=== PATIENT | female | born 1970 | race Two or more races ===

== ENCOUNTER 2017-07-15 02:09 | Emergency (ER) | payer OTHER ==
[2014-12-27 10:30] VITALS: Wt 54.4 kg
[~2017-07-15 02:09] MED LIST: CALC500T76 PO; CHOL100094 PO; CLIN25GE TP; CLIN50GE2; DOCU-416 PO; FLAX100030 PO; GLYC2TAB15 PO; HYDR25CA83 PO; HYDR2TAB74 PO; HYO125 SL; IBU600 PO; LACT1CAP6 PO; MOMR ENA; MULT-820 PO; MULT-865 PO; OMEP-137 PO; ONDA4TAB PO; ONDA4TAB9 PO; SODI45SP29 ENA; TRAM-420 PO
[2017-07-15] MEDS ORDERED: LEVO50TA86 PO (02:25)
--- NOTE | 2017-07-15 02:29 | ER Report ---
History and Physical Time Seen By MD: 02:29 Hx. of Stated Complaint: Pt is reporting severe abdominal pain (left lower quadrant). No nvd. No fevers. Pt is not taking narcotics after knee surgery 3 weeks ago. HPI/ROS CHIEF COMPLAINT: left lower abdominal pain HISTORY OF PRESENT ILLNESS: This is a 47 year old female. She has been having abdominal pain for a couple of days, slowly worsening, mainly in the left lower abdomen, with a feeling of distension in the lower abdomen. She has some intermittent sharp stabbing pain with constant dull pain. Nothing really makes it worse or better. Sometimes rates between a 7 and a 10. No fevers or chills noted. No nausea, vomiting or changes in diarrhea. REVIEW OF SYSTEMS: Constitutional: [No fever or chills.] Eyes: [No discharge.] [No vision changes.] ENT: [No sore throat.] [No congestion.] [No hearing changes.] Cardiovascular: [No chest pain.] [No palpitations.] Respiratory: [No cough.] [No shortness of breath.] Gastrointestinal: [No abdominal pain.] [No nausea or vomiting.] [No change in bowel movements.] [No blood in the stool or melena.] Genitourinary: [No dysuria.] [No hematuria.] [No frequency] Musculoskeletal: [No back pain.] [No extremity pain.] Skin: [No rashes.] [No bruising.] Neurological: [No numbness.] [No weakness.] [No headache.] Allergies: Coded Allergies: NSAIDS (Non-Steroidal Anti-Inflamma (Verified Allergy, Severe, AIRWAY OBSTRUCTION, 07/05/15) Sulfa (Sulfonamide Antibiotics) (Verified Allergy, Severe, ANAPHALAXSIS, ) buckwheat (Verified Allergy, Severe, ANAPHALAXISIS, 07/05/15) clams (Verified Allergy, Severe, DIFFUCULTY BREATHING, 07/05/15) corn (Verified Allergy, Severe, DIFFUCULTY BREATHING, 07/05/15) latex (Verified Allergy, Severe, RASH, ANPHALAXIS, 07/05/15) nut - unspecified (Verified Allergy, Severe, DIFFUCULTY BREATHING, 07/05/15 ) peach (Verified Allergy, Severe, DIFFICULTY BREATHING, 07/05/15) sesame seed (Verified Allergy, Severe, DIFFUCULTY BREATHING, 07/05/15) shellfish derived (Verified Allergy, Severe, DIFFUCULTY BREATHING, 07/05/15 ) soy (Verified Allergy, Severe, DIFFUCULTY BREATHING, 07/05/15) bacitracin (Verified Allergy, Intermediate, RASH, 07/05/15) gramicidin D (Verified Allergy, Intermediate, RASH, 07/05/15) neomycin (Verified Allergy, Intermediate, RASH, 07/05/15) polymyxin B (Verified Allergy, Intermediate, RASH, 07/05/15) spironolactone (Verified Allergy, Intermediate, RASH, 07/05/15) nausea/vomitting/diarrhea gold sodium thiomalate (Verified Allergy, Mild, RASH, 07/05/15) hydrocodone (Verified Adverse Reaction, Severe, VOMITING, 07/05/15) morphine (Verified Adverse Reaction, Intermediate, HARD TIME WAKING UP, ) Uncoded Allergies: CANTALOUPE (Allergy, Severe, ANAPHALAXISIS, 01/16/11) birch tree related fruits (Allergy, Severe, ANAPHYLAXIS, 12/24/14) cherries (Allergy, Severe, ANAPHYLAXIS, 12/24/14) Hayfever (Allergy, Intermediate, Itchy eyes, runny nose, 04/26/11) Home Meds Active Scripts Tramadol Hcl (TRAMADOL HCL) 50 Mg Tablet, 50 MG PO Q6H Y for PAIN, #12 TAB 0 Refills Prov:JORDI MCDANIEL MD 07/15/17 Ondansetron (ZOFRAN ODT) 4 Mg Tab.rapdis, 4 MG PO Q6H Y for NAUSEA/VOMITING, # 20 TAB.MYRA 0 Refills Prov:JORDI MCDANIEL MD 07/15/17 Metronidazole (METRONIDAZOLE) 500 Mg Tablet, 500 MG PO TID, #30 TAB 0 Refills Prov:JORDI MCDANIEL MD 07/15/17 Levofloxacin 500 Mg Tab (LEVOFLOXACIN 500 MG TAB) 500 Mg Tablet, 500 MG PO QDAY , #10 TAB 0 Refills Prov:JORDI MCDANIEL MD 07/15/17 Reported Medications Levothyroxine Sodium (LEVOTHYROXINE SODIUM) 50 Mcg Tablet, 25 MCG PO QDAY, TAB 07/15/17 Clindamycin Phos/Benzoyl Perox (CLINDAMYCIN-BENZOYL PEROX GEL) 25 Gm Gel..gram. , 1 INDIGO TP PRN 12/07/14 Lactobacillus Combination No.4 (PROBIOTIC) 1 Each Capsule, 1 EACH PO DAILY, CAPSULE 10/09/14 Sodium Chloride (SALINE MIST) 45 Ml Keiser, 1 SPRAY NICKOLAS PRN, SPRAY 10/09/14 Mometasone Furoate (NASONEX) 17 Gm Keiser, 1 SPRAY NICKOLAS PRN, SPRAY 10/09/14 Multivitamin (DAILY MULTIPLE VITAMIN) 1 Each Tablet, 1 TAB PO DAILY 10/09/14 Reviewed Nurses Notes: Yes Hx Smoking: No Smoking Status: Never Smoker Hx Substance Use Disorder: No Hx Alcohol Use: No Constitutional Vital Sign - Last 24 Hours 07/15/17 07/15/17 07/15/17 07/15/17 02:13 02:19 02:24 02:30 Temp 97.6 Pulse 63 63 Resp 16 B/P (MAP) 127/83 127/83 (98) 111/88 (96) Pulse Ox 98 99 O2 Delivery Room Air 07/15/17 07/15/17 07/15/17 07/15/17 02:39 02:54 03:00 03:05 Pulse 68 61 60 B/P (MAP) 109/80 (90) Pulse Ox 100 97 94 07/15/17 07/15/17 07/15/17 07/15/17 03:20 03:30 03:35 03:50 Pulse 61 ??? 59 B/P (MAP) 105/70 (82) Pulse Ox 92 93 07/15/17 07/15/17 07/15/17 07/15/17 04:00 04:05 04:20 04:30 Pulse 59 61 B/P (MAP) 106/72 (83) 117/88 (98) Pulse Ox 92 96 07/15/17 07/15/17 04:35 04:36 Pulse 55 55 Pulse Ox 96 96 Physical Exam General Appearance: The patient is alert. Mild acute distress because of the pain. Non-toxic in appearance. Eyes: Pupils are equal, round. No pallor, injection or icterus. ENT: Mucous membranes are moist. Neck: Supple and non tender. No lymphadenopathy. Respiratory: Lungs are clear to auscultation. Cardiovascular: Regular rate and rhythm. No murmurs, gallops or rubs. Normal capillary refill. Gastrointestinal: Abdomen is soft, some tenderness throughout the lower abdomen seems worse in the left lower quadrant. Multiple distention. No rebound or guarding. No masses or organomegaly. Normal active bowel sounds. No costovertebral angle tenderness with percussion. Neurological: Alert and oriented x3. Skin: Warm and dry. DIFFERENTIAL DIAGNOSIS: After history and physical exam, differential diagnosis was considered for abdominal pain including but not limited to diverticulitis, colitis, constipation, kidney stone, ovarian problem, endometriosis and urinary tract infection. Medical Decision Making Data Points Result Diagram: 07/15/17 0248 07/15/17 0258 Laboratory Hematology Test 07/15/17 02:13 07/15/17 02:48 07/15/17 02:58 Urine Color Straw Urine Clarity Clear Urine pH 6.0 pH (4.8-9.5) Urine Specific Mar Lin 1.012 Urine Protein Negative mg/dL (NEGATIVE) Urine Glucose (UA) Negative mg/dL (NEGATIVE) Urine Ketones Negative mg/dL (NEGATIVE) Urine Blood Negative (NEGATIVE) Urine Nitrite Negative (NEGATIVE) Urine Bilirubin Negative (NEGATIVE) Urine Urobilinogen Negative mg/dL (0.2-1.9) Urine Leukocyte Esterase Negative (NEGATIVE) Urine RBC <1 /HPF (0-2/HPF) Urine WBC <1 /HPF (0-5/HPF) Urine Squamous Epithelial Cells Many /LPF (</=FEW) Urine Transitional Epithelial Cells Few /LPF (NONE-FEW) Urine Bacteria Negative /HPF (NONE-FEW) Urine Mucus None /HPF (NONE-FEW) Red Blood Count 4.81 M/uL (4.17-5.56) Mean Corpuscular Volume 84.8 fL (80.0-96.0) Mean Corpuscular Hemoglobin 29.6 pg (26.0-33.0) Mean Corpuscular Hemoglobin Concent 34.8 g/dL (32.0-36.0) Red Cell Distribution Width 13.7 % (11.5-14.5) Mean Platelet Volume 9.2 fL (7.2-11.1) Neutrophils (%) (Auto) 73.9 % (39.4-72.5) Lymphocytes (%) (Auto) 12.5 % (17.6-49.6) Monocytes (%) (Auto) 11.8 % (4.1-12.4) Eosinophils (%) (Auto) 1.4 % (0.4-6.7) Basophils (%) (Auto) 0.4 % (0.3-1.4) Nucleated RBC Relative Count (auto) 0.1 /100WBC Neutrophils # (Auto) 7.2 K/uL (2.0-7.4) Lymphocytes # (Auto) 1.2 K/uL (1.3-3.6) Monocytes # (Auto) 1.1 K/uL (0.3-1.0) Eosinophils # (Auto) 0.1 K/uL (0.0-0.5) Basophils # (Auto) 0.0 K/uL (0.0-0.1) Nucleated RBC Absolute Count (auto) 0.00 K/uL Sodium Level 136 mmol/L (137-145) Potassium Level 3.6 mmol/L (3.5-5.0) Chloride Level 103 mmol/L (98-107) Carbon Dioxide Level 19 mmol/L (22-31) Blood Urea Nitrogen 20 mg/dl (7-18) Creatinine 0.80 mg/dl (0.52-1.04) Glomerular Filtration Rate Calc > 60.0 Random Glucose 84 mg/dl (75-110) Calcium Level 9.2 mg/dl (8.4-10.2) Total Bilirubin 0.8 mg/dl (0.2-1.3) Aspartate Amino Transf (AST/SGOT) 21 U/L (0-35) Alanine Aminotransferase (ALT/SGPT) 20 U/L (0-56) Alkaline Phosphatase 51 U/L (0-126) C-Reactive Protein 5.3 mg/dl (<1.0) Total Protein 7.5 gm/dl (6.3-8.2) Albumin 3.9 g/dl (3.5-5.0) Amylase Level 86 U/L (0-110) Lipase 114 U/L (23-300) Chemistry Test 07/15/17 02:13 07/15/17 02:48 07/15/17 02:58 Urine Color Straw Urine Clarity Clear Urine pH 6.0 pH (4.8-9.5) Urine Specific Mar Lin 1.012 Urine Protein Negative mg/dL (NEGATIVE) Urine Glucose (UA) Negative mg/dL (NEGATIVE) Urine Ketones Negative mg/dL (NEGATIVE) Urine Blood Negative (NEGATIVE) Urine Nitrite Negative (NEGATIVE) Urine Bilirubin Negative (NEGATIVE) Urine Urobilinogen Negative mg/dL (0.2-1.9) Urine Leukocyte Esterase Negative (NEGATIVE) Urine RBC <1 /HPF (0-2/HPF) Urine WBC <1 /HPF (0-5/HPF) Urine Squamous Epithelial Cells Many /LPF (</=FEW) Urine Transitional Epithelial Cells Few /LPF (NONE-FEW) Urine Bacteria Negative /HPF (NONE-FEW) Urine Mucus None /HPF (NONE-FEW) White Blood Count 9.7 k/uL (4.5-11.0) Red Blood Count 4.81 M/uL (4.17-5.56) Hemoglobin 14.2 g/dL (12.0-16.0) Hematocrit 40.8 % (34.0-47.0) Mean Corpuscular Volume 84.8 fL (80.0-96.0) Mean Corpuscular Hemoglobin 29.6 pg (26.0-33.0) Mean Corpuscular Hemoglobin Concent 34.8 g/dL (32.0-36.0) Red Cell Distribution Width 13.7 % (11.5-14.5) Platelet Count 237 K/uL (150-450) Mean Platelet Volume 9.2 fL (7.2-11.1) Neutrophils (%) (Auto) 73.9 % (39.4-72.5) Lymphocytes (%) (Auto) 12.5 % (17.6-49.6) Monocytes (%) (Auto) 11.8 % (4.1-12.4) Eosinophils (%) (Auto) 1.4 % (0.4-6.7) Basophils (%) (Auto) 0.4 % (0.3-1.4) Nucleated RBC Relative Count (auto) 0.1 /100WBC Neutrophils # (Auto) 7.2 K/uL (2.0-7.4) Lymphocytes # (Auto) 1.2 K/uL (1.3-3.6) Monocytes # (Auto) 1.1 K/uL (0.3-1.0) Eosinophils # (Auto) 0.1 K/uL (0.0-0.5) Basophils # (Auto) 0.0 K/uL (0.0-0.1) Nucleated RBC Absolute Count (auto) 0.00 K/uL Glomerular Filtration Rate Calc > 60.0 Calcium Level 9.2 mg/dl (8.4-10.2) Total Bilirubin 0.8 mg/dl (0.2-1.3) Aspartate Amino Transf (AST/SGOT) 21 U/L (0-35) Alanine Aminotransferase (ALT/SGPT) 20 U/L (0-56) Alkaline Phosphatase 51 U/L (0-126) C-Reactive Protein 5.3 mg/dl (<1.0) Total Protein 7.5 gm/dl (6.3-8.2) Albumin 3.9 g/dl (3.5-5.0) Amylase Level 86 U/L (0-110) Lipase 114 U/L (23-300) Urinalysis Test 07/15/17 02:13 Urine Color Straw Urine Clarity Clear Urine pH 6.0 pH (4.8-9.5) Urine Specific Mar Lin 1.012 Urine Protein Negative mg/dL (NEGATIVE) Urine Glucose (UA) Negative mg/dL (NEGATIVE) Urine Ketones Negative mg/dL (NEGATIVE) Urine Blood Negative (NEGATIVE) Urine Nitrite Negative (NEGATIVE) Urine Bilirubin Negative (NEGATIVE) Urine Urobilinogen Negative mg/dL (0.2-1.9) Urine Leukocyte Esterase Negative (NEGATIVE) Urine RBC <1 /HPF (0-2/HPF) Urine WBC <1 /HPF (0-5/HPF) Urine Squamous Epithelial Cells Many /LPF (</=FEW) Urine Transitional Epithelial Cells Few /LPF (NONE-FEW) Urine Bacteria Negative /HPF (NONE-FEW) Urine Mucus None /HPF (NONE-FEW) EKG/Imaging Imaging ABDOMEN/PELVIS WITH CONTRAST HISTORY: Lower abdominal pain. COMPARISON: 04/30/2015 and studies dating to 01/09/2008. TECHNIQUE: Axial images were obtained from the lung bases through the symphysis pubis with intravenous contrast. Sagittal and coronal reformats were performed. One of the following dose optimization techniques was utilized in the performance of this exam: Automated exposure control; adjustment of the mA and/ or kV according to the patient's size; or use of an iterative reconstruction technique. Specific details can be referenced in the facility's radiology CT exam operational policy. CONTRAST: 75 mm IV Isovue-370. FINDINGS: Lower chest: Stable triangular shaped nodules in the subpleural right lower lobe , compatible with benign lymph nodes. Liver: Normal. Gallbladder/biliary: Status post cholecystectomy. No intrahepatic or extrahepatic ductal dilation. Pancreas: Normal. Spleen: Normal. Adrenals: Normal. Kidneys/ureters/bladder: There are bilateral extrarenal pelves. The kidneys and ureters are normal. Bladder wall appears diffusely and mildly thickened, likely due to the degree of distention. GI/mesentery/peritoneal cavity: There is no bowel obstruction. There is focal wall thickening/edema of the sigmoid colon (axial image 99 and coronal image 52) , and there is subtle hazy appearance of the adjacent fat. Within the wall of this portion of the sigmoid colon is a peripherally enhancing fluid attenuating structure that is best appreciated on coronal image 50 and may be focal edema versus an abscess. There is no gas within it. There are numerous diverticula in this location, and there are also diverticula of the descending colon. The appendix is not discretely visualized. No inflammatory stranding in the right lower quadrant. Vessels: No aneurysm or significant atherosclerotic disease. No dissection. Nodes: Normal. Pelvis: There is a 3.3 cm left ovarian cyst. Uterus is absent. Right ovary is not identified. There is small amount of simple pelvic free fluid. There are pelvic phleboliths. Bones/vertebra/soft tissues: There is minimal degenerative change. No listhesis. IMPRESSION: 1. Sigmoid diverticulitis with small abscess versus edema within the wall of the sigmoid colon. Small amount of simple pelvic free fluid is likely reactive. 2. 3.3 cm left ovarian cyst. These findings were discussed by phone with JORDI MCDANIEL on 07/15/2017 4:11 AM. Report Dictated By: Triny Mckeon at 07/15/2017 3:55 AM ED Course/Re-evaluation Clinical Indication for ER IV: Hydration, IV Access ED Course She felt a little bit better after the IV normal saline. Did not want any pain medicines or Zofran while here. CT scan did show sigmoid diverticulitis. Spent some time discussing this with the patient. She was started on Levaquin, metronidazole, and I gave her some Zofran and tramadol to use for pain and nausea as needed. Decision to Disposition Date: Jul 15, 2017 Decision to Disposition Time: 04:33 Depart Departure Latest Vital Signs Vital Signs Date Time Temp Pulse Resp B/P (MAP) Pulse Ox O2 Delivery O2 Flow Rate FiO2 07/15/17 04:36 55 96 07/15/17 04:30 117/88 (98) 07/15/17 02:13 97.6 16 Room Air Impression: Primary Impression: Sigmoid diverticulitis Condition: Improved Disposition: HOME OR SELF-CARE Referrals: GERMAN GARCIA MD (PCP) New Scripts Tramadol Hcl (TRAMADOL HCL) 50 Mg Tablet 50 MG PO Q6H Y for PAIN, #12 TAB 0 Refills Prov: JORDI MCDANIEL MD 07/15/17 Ondansetron (ZOFRAN ODT) 4 Mg Tab.rapdis 4 MG PO Q6H Y for NAUSEA/VOMITING, #20 TAB.MYRA 0 Refills Prov: JORDI MCDANIEL MD 07/15/17 Metronidazole (METRONIDAZOLE) 500 Mg Tablet 500 MG PO TID, #30 TAB 0 Refills Prov: JORDI MCDANIEL MD 07/15/17 Levofloxacin 500 Mg Tab (LEVOFLOXACIN 500 MG TAB) 500 Mg Tablet 500 MG PO QDAY, #10 TAB 0 Refills Prov: JORDI MCDANIEL MD 07/15/17 Patient Instructions: Diverticulitis (ED), Diverticulitis Diet (ED) Additional Instructions: Take the following two antibiotics for the next 10 days. Levofloxacin 500mg once a day. Metronidazole 500mg three times a day. Take Zofran 4mg, one every 6 hours as needed for nausea. Keep taking Tylenol as needed for pain. For more severe pain, you can try Tramadol 50mg every 6 hours as needed. JORDI MCDANIEL MD Jul 15, 2017 02:29
[2017-07-15] MEDS ORDERED: IOPAMIDOL 76% 75 ML INFUS BTL 75 ML ONE (02:55)
[2017-07-15 03:13] LABS: PLATELET COUNT, AUTOMATED 237 K/uL (150-450)
--- NOTE | 2017-07-15 04:18 | RADIOLOGY IMAGING REPORT ---
FACILITY: [facility] [place] PATIENT NAME: Martina Crandall : 1970 MR: [id number] V: [id number] EXAM DATE: ORDERING PHYSICIAN: JORDI MCDANIEL TECHNOLOGIST: Location: [facility] Patient: Martina Crandall : 1970 Visit/Account:[id number] Date of Sevice: 07/15/2017 ABDOMEN/PELVIS WITH CONTRAST HISTORY: Lower abdominal pain. COMPARISON: 04/30/2015 and studies dating to 01/09/2008. TECHNIQUE: Axial images were obtained from the lung bases through the symphysis pubis with intravenou s contrast. Sagittal and coronal reformats were performed. One of the following dose optimization techniques was utilized in the performance of this exam: Autom ated exposure control; adjustment of the mA and/or kV according to the patient's size; or use of an i terative reconstruction technique. Specific details can be referenced in the facility's radiology CT exam operational policy. CONTRAST: 75 mm IV Isovue-370. FINDINGS: Lower chest: Stable triangular shaped nodules in the subpleural right lower lobe, compatible with mercedes ign lymph nodes. Liver: Normal. Gallbladder/biliary: Status post cholecystectomy. No intrahepatic or extrahepatic ductal dilation. Pancreas: Normal. Spleen: Normal. Adrenals: Normal. Kidneys/ureters/bladder: There are bilateral extrarenal pelves. The kidneys and ureters are normal. B ladder wall appears diffusely and mildly thickened, likely due to the degree of distention. GI/mesentery/peritoneal cavity: There is no bowel obstruction. There is focal wall thickening/edema o f the sigmoid colon (axial image 99 and coronal image 52), and there is subtle hazy appearance of the adjacent fat. Within the wall of this portion of the sigmoid colon is a peripherally enhancing fluid attenuating structure that is best appreciated on coronal image 50 and may be focal edema versus an abscess. There is no gas within it. There are numerous diverticula in this location, and there are al so diverticula of the descending colon. The appendix is not discretely visualized. No inflammatory s tranding in the right lower quadrant. Vessels: No aneurysm or significant atherosclerotic disease. No dissection. Nodes: Normal. Pelvis: There is a 3.3 cm left ovarian cyst. Uterus is absent. Right ovary is not identified. There i s small amount of simple pelvic free fluid. There are pelvic phleboliths. Bones/vertebra/soft tissues: There is minimal degenerative change. No listhesis. IMPRESSION: 1. Sigmoid diverticulitis with small abscess versus edema within the wall of the sigmoid colon. Small amount of simple pelvic free fluid is likely reactive. 2. 3.3 cm left ovarian cyst. These findings were discussed by phone with JORDI MCDANIEL on 07/15/2017 4:11 AM. Report Dictated By: Triny Mckeon at 07/15/2017 3:55 AM Report E-Signed By: Triny Mckeon at 07/15/2017 4:15 AM WSN:[id number]
[2017-07-15 04:30] VITALS: BP 117/88
[2017-07-15] MEDS ORDERED: traMADol 50 MG TAB TH 2 TAB/BOTTLE PO ONE (04:35)
[2017-07-15] MEDS ORDERED: ONDANSETRON 4 MG ODT TH SL ONE (04:35)
[2017-07-15] MEDS ORDERED: METRONIDAZOLE 500 MG TABLET PO ONE (04:35)
[2017-07-15] MEDS ORDERED: METR-160 PO (04:35)
[2017-07-15] MEDS ORDERED: TRAM-420 PO (04:35)
[2017-07-15] MEDS ORDERED: LEVO500T83 PO (04:35)
[2017-07-15] MEDS ORDERED: LEVOFLOXACIN 500 MG TAB PO ONE (04:35)
[2017-07-15] MEDS ORDERED: ONDA4TAB PO (04:35)
== END 2017-07-15 04:53 | disposition home or self-care (01) ==
LOC: ER 02:25
DX: K57.32 Diverticulitis of large intestine without perforation or abscess without bleeding (principal)
CPT/HCPCS: 74177; 81001; 82150; 83690; 85025; 86140; 99284; C9399; Q9967; S0119; 82040; 82247; 82310; 82374; 82435; 82565; 82947; 84075; 84132; 84155; 84295; 84450; 84460; 84520

== ENCOUNTER → 2017-08-15 | Outpatient (CLI) | payer OTHER ==
[2014-12-27 10:30] VITALS: BMI 17.9
[~2017-08-15] MED LIST changes: +IOPAMIDOL 76% 100 ML INFUS BTL 100 ML ONE; +LEVO500T83 PO; +LEVO50TA86 PO; +METR-160 PO
--- NOTE | 2017-08-15 14:26 | RADIOLOGY IMAGING REPORT ---
FACILITY: [facility] [place] PATIENT NAME: Martina Crandall : 1970 MR: [id number] V: [id number] EXAM DATE: ORDERING PHYSICIAN: LAURENCE ALMANZAR TECHNOLOGIST: Location: [facility] Patient: Martina Crandall : 1970 Visit/Account:[id number] Date of Sevice: 08/15/2017 ABDOMEN/PELVIS WITH CONTRAST HISTORY: Diverticulitis TECHNIQUE: CT abdomen and pelvis with intravenous contrast. Contiguous axial images of the abdomen and pelvis was performed from the lung bases to the symphysis pubis. One of the following dose optimization techniques was utilized in the performance of this exam: Autom ated exposure control; adjustment of the mA and/or kV according to the patient's size; or use of an i terative reconstruction technique. Specific details can be referenced in the facility's radiology C T exam operational policy. CONTRAST: 75 cc of Isovue-370 COMPARISON: CT scan 07/15/2017, CT chest 01/16/2011 FINDINGS: Visualized lung bases: Scattered pulmonary micronodules at the lung bases are stable dating back to 2010 likely benign. Index nodules described below. 3 mm right middle lobe nodule image 6 is stable 3 mm pleural-based right lower lobe nodule image 6 is stable 3 mm right lower lobe nodule image 4 is stable Hepatobiliary: Tiny 2 motor hypodensity segment 7 image 26 is stable. Gallbladder is absent. Spleen: Negative. Adrenals: Negative. Kidneys/: Urethra appears slightly prominent but unchanged and is of uncertain significance. Pancreas: Negative. GI: There is colonic diverticulosis and constipation. Previous described findings of diverticulitis have resolved. Vessels/spaces/nodes: Negative. Bones/soft tissues: Negative. IMPRESSION: 1. No acute pathology in the abdomen or pelvis. Previously described changes of diverticulitis have resolved. 2. Diverticulosis and constipation of the colon but no bowel obstruction or focal inflammation. 3. Several pulmonary micronodules at the lung bases are unchanged when compared to CT chest 2010. Report Dictated By: Yvan Weeks MD at 08/15/2017 2:05 PM Report E-Signed By: Yvan Weeks MD at 08/15/2017 2:22 PM WSN:[id number]
== END ==
LOC: CT 01:49
PROVIDERS: ATTEND Internal Medicine Gastroenterology
DX: K57.30 Diverticulosis of large intestine without perforation or abscess without bleeding (principal); R91.8 Other nonspecific abnormal finding of lung field; Z90.49 Acquired absence of other specified parts of digestive tract
CPT/HCPCS: 74177; Q9967